=== PATIENT | male | born 1995 | race Caucasian/White ===

== ENCOUNTER 2017-02-27 15:36 | Emergency (ER) | payer OTHER ==
[2017-02-27 15:45] VITALS: TEMP 98.6
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
[2017-02-27] MEDS ORDERED: SKIN ADHESIVE (DERMABOND) 1 EACH TP ONE (16:56)
[2017-02-27 18:09] VITALS: BP 131/75; PULSE 73; RESP 18; O2SAT 95
== END 2017-02-27 18:08 | disposition home or self-care (01) ==
PROC: 0HQ0XZZ Repair Scalp Skin, External Approach (ICD-10-PCS; principal; 2017-02-27)
DX: S01.01XA Laceration without foreign body of scalp, initial encounter (principal); W22.8XXA Striking against or struck by other objects, initial encounter